=== PATIENT | male | born 1950 | race Caucasian/White ===

== ENCOUNTER 2019-11-10 01:02 | Emergency (ER) | payer OTHER, SELFPAY ==
[2019-11-10 01:13] VITALS: BP 150/90; PULSE 70; RESP 20; TEMP 36.6; O2SAT 98
--- NOTE | 2019-11-10 01:24 | ED.GENADULT ---
HPI - General Adult General Chief complaint: Unspecified Stated complaint: left leg Time Seen by Provider: 11/10/19 01:25 Source: patient Mode of arrival: ambulatory Limitations: no limitations History of Present Illness HPI narrative: 69-year-old man with history of cocaine abuse, coronary artery disease, type 2 diabetes, hypertension who is 1 month status post three-vessel CABG who comes in today complaining of severe left leg pain that started about 2 hours ago. Patient states that he recently been smoking some cocaine. Pain was severe and his thigh looked mottled he said. His leg was numb but very painful. It also looked pale. He denies prior similar experiences. He states the pain is now completely resolved. Onset (ago): hour(s) (2) Location: lower extremity ( Left from the hip down) Radiation: non-radiation Severity: severe Quality: burning Pain Consistency: constant and now resolved Relieving factors: none Exacerbating factors: none Related Data Home Medications Medication Instructions Recorded Confirmed amlodipine 10 mg PO DAILY 11/10/19 11/10/19 apixaban 5 mg PO BID 11/10/19 11/10/19 atorvastatin 40 mg PO HS 11/10/19 11/10/19 clopidogrel 75 mg PO DAILY 11/10/19 11/10/19 glipizide 5 mg PO DAILY 11/10/19 11/10/19 isosorbide mononitrate 120 mg PO DAILY 11/10/19 11/10/19 losartan 50 mg PO DAILY 11/10/19 11/10/19 metformin 1,000 mg PO DAILY 11/10/19 11/10/19 tamsulosin 0.4 mg PO DAILY 11/10/19 11/10/19 vit C-E-zinc [id number] See Rx Instructions .ROUTE .COMPLEX 11/10/19 11/10/19 [ICaps AREDS2] Allergies Allergy/AdvReac Type Severity Reaction Status Date / Time lisinopril Allergy Dizziness Verified 11/10/19 01:35 penicillin V [From Pen-Vee K] Allergy Hives Verified 11/10/19 01:35 Review of Systems Constitutional: Constitutional: Denies chills, Denies fever(s) and Denies weakness Eyes: Eyes: Denies change in vision and Denies photophobia ENT: Denies dysphagia, Denies nasal congestion and Denies sore throat Cardiovascular: Cardiovascular: Reports chest pain and Reports radiating jaw, neck or arm pain Respiratory: Respiratory: Denies chest congestion, Reports cough, Denies dyspnea and Denies wheezing Gastrointestinal: Gastrointestinal: Denies abdominal pain, Denies nausea and Denies vomiting Genitourinary: Genitourinary: Denies dysuria and Denies urinary frequency Musculoskeletal: Musculoskeletal: Reports as per HPI and Denies back pain Integumentary/Breasts: Skin/Breast: Denies pruritus, Denies erythema and Denies rash Neurologic: Denies vertigo, Denies dizziness and Denies syncope Psychiatric: Psychiatric: Denies anxiety and Denies depression Endocrine: Endocrine: Denies polydipsia and Denies polyuria Hematologic/Lymphatic: Hematologic/Lymphatic: Denies easy bleeding and Denies easy bruising Allergic/Immunologic: Allergic/Immunologic: Denies lip swelling and Denies wheezing PMFSH Past Medical History Medical History (Updated 11/10/19 @ 04:08 by Satinder Salas MD) Atrial fibrillation BPH (benign prostatic hyperplasia) Coronary artery disease Dyslipidemia Hypertension Pacemaker Type 2 diabetes mellitus Surgical History Surgical History History of coronary angioplasty with insertion of stent S/P CABG x 3 Social History Social History (Updated 11/10/19 @ 01:47 by Satinder Salas MD) Smoking status: Current some day smoker Alcohol intake: never Substance use: current Substance use type: crack/cocaine Living arrangements: with family Gender identity (if verbalized by the patient): Male Exam Const: General: no acute distress and alert Nutritional Appearance: obese Orientation/consciousness: patient oriented x3 HENMT: Head: normal to inspection Face and sinus: normal facial exam Mouth: Yes moist mucous membranes Eyes: Conjunctivae: conjunctivae normal Pupils: Equal, round and reactive pu
--- NOTE | 2019-11-10 01:40 | PC.NURSE ---
MD used doppler, insurance underwriter sales unable to palpate pulse in left leg. MD found faint weak pulse with doppler
--- NOTE | 2019-11-10 01:43 | ECG_ITS ---
Measurements Intervals Morgan Rate: 85 P: SD: 0 QRS: -56 QRSD: 196 T: 127 QT: 487 QTc: 582 Interpretive Statements ELECTRONIC VENTRICULAR PACEMAKER VENTRICULAR COUPLET AND FREQUENT VENTRICULAR PREMATURE COMPLEXES BASELINE ARTIFACT- I, II, III, AVR, AVL NO FURTHER INTERPRETATION IS POSSIBLE ABNORMAL ECG Electronically Signed On 11-10-2019 7:52:32 CDT by Soy Andersen D.O.
[2019-11-10 02:02] LABS: Basophils Absolute Auto 0.04 K/mm3 (0.00-0.10); Basophils Percent Auto 0.4 % (0.0-1.0); Eosinophils Absolute Auto 0.04 K/mm3 (0.02-0.50); Eosinophils Percent Auto 0.4 % (1.0-6.0); Hemoglobin 9.5 g/dL (12.4-15.3); Immature Granulocyte Absolute 0.06 K/mm3 (0.00-0.00); Immature Granulocyte Percent A 0.6 % (0.0-0.0); Lymphocytes Percent Auto 5.9 % (18.0-42.0); Mean Corpuscular HGB Conc 33.9 g/dL (32.0-36.0); Mean Corpuscular Hemoglobin 30.8 pg (27.0-31.0); Mean Corpuscular Volume 90.9 fL (78.0-102.0); Mean Platelet Volume 9.8 fl (8.7-11.0); Monocytes Absolute Auto 0.58 K/mm3 (0.10-0.90); Monocytes Percent Auto 5.7 % (2.0-11.0); Neutrophils Absolute Auto 8.8 K/mm3 (1.7-7.2); Platelet Count Result 184 K/mm3 (150-420); Red Blood Count 3.08 M/mm3 (4.70-6.10); Red Cell Distribution Width 14.1 % (11.6-14.4); White Blood Count 10.1 K/mm3 (4.8-10.8)
[2019-11-10 02:02] LABS: Add Urine Microscopic? YES; Appearance Urine Clear (Clear); Bilirubin Urine Negative (Negative); Blood Urine Negative (Negative); Color Urine Yellow (Yellow); Glucose Urine UA Negative (Negative); Ketones Urine Trace (Negative); Leukocyte Esterase Ur Negative (Negative); Nitrate Urine Negative (Negative); Protein Urine Negative (Negative); Specific Grav Ur 1.025 (1.010-1.020); Urobilinogen Urine 0.2 mg/dL (0.2-1.0); pH Urine 5.5 (5.0-8.0)
[2019-11-10 02:08] LABS: Amphetamine Screen Urine Negative (Negative); Barbiturate Screen Urine Negative (Negative); Benzodiazepines Screen Urine Negative (Negative); Cannabinoid Screen Urine Negative (Negative); Cocaine Screen Urine Positive (Negative); Methadone Screen Urine Negative (Negative); Opiate Screen Urine Negative (Negative); Phencyclidine Screen Urine Negative (Negative)
[2019-11-10 02:09] LABS: Bacteria Urine Trace /hpf; RBC Urine 0-2 /hpf (0-2); Squamous Epithelial Cell Urine Rare /hpf (Few); WBC Urine 0-3 /hpf (0-3)
[2019-11-10 02:10] LABS: Mucus Urine Rare /lpf
--- NOTE | 2019-11-10 02:10 | PC.NURSE ---
DOPPLER BY JUICE TESTER TO LEFT LEG, STRONG POPITEAL PULSE, STONG PULSE POSTERIOR TIBIAL, NO PEDAL PULSE FOUND WITH DOPPLER. LEFT FOOT COOL TO TOUCH, LEFT CALF COOLER THAN RIGHT, THIGH WARM ON BOTH LEGS.
[2019-11-10 02:15] LABS: Acetaminophen 0 ug/mL (10-30); Alanine Aminotransferase 13 U/L (16-63); Alkaline Phosphatase 85 U/L (46-116); Anion Gap 19.1 mmol/L (7-16); Aspartate Amino Transferase 12 U/L (15-37); Bilirubin,Total 0.5 mg/dL (0.00-1.00); Blood Urea Nitrogen 22 mg/dL (7-18); Calcium 7.9 mg/dL (8.5-10.1); Carbon Dioxide 19 mmol/L (21-32); Chloride 109 mmol/L (98-108); Creatine Kinase 64 U/L (39-308); Estimated CRCL calculation 46 ml/min; Estimated Glomerular Filt Rate 53; Ethanol < 3 mg/dL (0-6); Glucose 183 mg/dL (70-99); Osmolality Calculated 304 mOsm/kg (285-295); Potassium 4.1 mmol/L (3.5-5.1); Salicylate 0.6 mg/dL (2.8-20.0); Sodium 143 mmol/L (136-145); Total Protein 6.3 g/dL (6.4-8.2)
[2019-11-10 02:22] LABS: INR 1.2; Partial Thromboplastin Time 31.8 SEC (22.3-31.6); Prothrombin Time 12.5 Seconds (9.64-11.0)
--- NOTE | 2019-11-10 02:37 | PC.NURSE ---
CALL TO HEMAL COSTELLO, CHART FAXED FOR REVIEW TO SEE IF ABLE TO SHARE WITH THEIR MD DUE TO COVID 19.
--- NOTE | 2019-11-10 03:01 | PC.NURSE ---
CALL & VERIFIED HEMAL COSTELLO RECEIVED FAX, NOW TO WAIT TO SEE IF ABLE TO ACCEPT.
[2019-11-10 03:02] VITALS: BP 140/88; PULSE 80; RESP 20
--- NOTE | 2019-11-10 04:01 | PC.NURSE ---
Joshua Jay called back, consulting with MICKIE there.
[2019-11-10 04:03] VITALS: BP 156/74; PULSE 80; RESP 16; TEMP 36.6
[2019-11-10] MEDS: ACETAMINOPHEN 500 MG TABLET 1000 MG PO (04:21)
--- NOTE | 2019-11-10 05:02 | PC.NURSE ---
patient sleeping waiting for ride
[2019-11-10 05:03] VITALS: BP 144/88; PULSE 70; RESP 16
--- NOTE | 2019-11-10 05:59 | PC.NURSE ---
0532 walking patient to lobby to meet ride, started coughing grabbing chest. Sat in Chair next to ride, went unresponsive and collapsed in floor. Code Celestine called, see Code Sheet.
--- NOTE | 2019-11-10 06:54 | PC.NURSE ---
0630 Sister notified of , home chosen & body ok to be released. 0633 Night Shift Manager Garrison DHILLON notified, approval to release of body. [id number] paged.
--- NOTE | 2019-11-10 07:05 | PC.NURSE ---
enroute, ETT removed.
[2019-11-10 08:25] VITALS: BP 0/0; PULSE 0; RESP 0
--- NOTE | 2019-11-10 08:27 | PC.NURSE ---
0800 IV DC Prior to code, ETT tube removed, body cleaned for home
== END 2019-11-10 05:55 | disposition expired ==
PROVIDERS: Emergency Provider Emergency Medicine
DX: I46.9 Cardiac arrest, cause unspecified (principal); M79.605 Pain in left leg
CPT/HCPCS: 31500; 36415; 80053; 80307; 81001; 82550; 83605; 85025; 85610; 85730; 92950; 93005; 99284; 99285; J0171